=== PATIENT | female | born 1950 | race Caucasian/White ===

== ENCOUNTER 2024-01-01 09:20 | Emergency (ER) | payer MEDICARE, OTHER, SELFPAY ==
[2024-01-01 09:24] VITALS: BP 158/77
[2024-01-01 09:34] VITALS: BMI 27.3
[2024-01-01 10:18] VITALS: BP 158/66
--- NOTE | 2024-01-01 10:42 | ED.GENMED ---
History of Present Illness
General
Chief Complaint: Fall
Source: patient and spouse
Exam Limitations: none
Time Seen by Provider: 01/01/24 09:31
Travel History
Have you had any contact with someone who has COVID-19?: No
Do you have any symptoms of coronavirus? Fever > 100 degrees, chills, cough, shortness of breath, sore throat, loss of taste or smell, muscle aches, or headache?: No
History of Present Illness
History of Present Illness:
73-year-old female who presents after fall on . Landed on her buttocks. She states she went straight down. She reports pain throughout the lower lumbar and sacral region. No numbness or tingling. No loss of bladder or bowel function, no
motor weakness. She states that the pain is not that bad. She was able to sleep because the pain is not that bad when she lays. She has been using ibuprofen which seems to help.
Past History
Past History
ED Past Medical History: HTN and Hypothyroidism
ED Past Surgical History:
Phy Exam
Physical Exam
Physical Exam:
CONSTITUTIONAL Vital signs reviewed, Patient alert and oriented to person, place and time. Well-appearing
HEAD atraumatic, normocephalic.
EYES eyelids normal to inspection, Extraocular muscles intact, Conjunctiva normal, Sclera normal.
NECK normal range of motion, Trachea midline, no jugular venous distention.
RESP no respiratory distress
BACK No obvious deformities, no true midline tenderness, no sacral tenderness
UPPER EXTREMITY Gross Range of motion normal, gross motor strength normal
LOWER EXTREMITY Gross range of motion normal, Gross motor strength normal
NEURO Speech normal, No focal motor deficits include, Sarah coma scale 15, Memory normal, Cranial Nerves intact to screening exam.
SKIN Skin warm, dry, and normal in color.
PSYCHIATRIC Patient oriented to person place and time, Normal affect.
Course
Orders/Labs/Results
Orders:
Orders
01/01/24 09:31
Pelvis, 1 or 2 Views CR [CR Pelvis - 1 Or 2 Views ] Urgent
Comment:
Reason For Exam: fall
01/01/24 09:55
Lumbar Spine, 2 or 3 View [CR Lumbar Spine 2 Or 3 Views] Urgent
Comment:
Reason For Exam: fall
Vital Signs
Initial and Last Documented VS:
Initial Vital Signs
Temp Pulse Resp BP Pulse Ox
98.3 F 87 18 158/77 98
01/01/24 09:24 01/01/24 09:24 01/01/24 09:24 01/01/24 09:24 01/01/24 09:24
Last Documented Vital Signs
Temp Pulse Resp BP Pulse Ox
98.3 F 87 18 158/66 96
01/01/24 09:24 01/01/24 09:24 01/01/24 09:24 01/01/24 10:18 01/01/24 10:19
MDM/Problems Addressed
MDM/Problems Addressed:
Lumbar compression fracture
*Radiology
Radiology exam reviewed: preliminary read by ED provider (L4 compression fracture noted)
*Pulse Oximetry
Patient hypoxic: no
*Critical Care Note
Total Time (30-74mins, 75-104mins- exclusive of procedures): Not Applicable
Data Reviewed
Source: patient and significant other
Prescriptions/Medications Considered But Not Given:
Consider narcotic pain medication but patient reports it makes her nauseous.
Patient Management
Escalation/DeEscalation of care consider admission/obs:
Lumbar compression fracture. Outpatient PCP and spine follow-up.
ED Attending Note
-
Portions of this chart may have been created with voice recognition software.� Occasional wrong word or��sound alike� substitutions may have occurred due to the inherent limitations of voice recognition software.
Discharge Plan
Departure
Patient Disposition: Home (Routine Discharge)
Date of Disposition: 01/01/24
Time of Disposition: 10:44
Patient with high blood pressure during this ER visit?: Yes
Discharge Problem:
Compression fracture of lumbar vertebra
Instructions: Vertebral compression fracture, BLOOD PRESSURE
Prescriptions:
No Action
lisinopril 20 mg Tablet
20 mg PO DAILY
levothyroxine 100 mcg Tablet
100 mcg PO DAILY
biotin 10,000 mcg Capsule
5,000 mcg PO DAILY
fluocinonide 0.05 % Cream
1 applic TOPICAL BID
finasteride 5 mg Tablet
2.5 mg PO DAILY
Bufferin 81 mg Tablet
1 tab PO DAILY
Referrals:
Jacob Madsen MD [Family Provider] -
Alberto Reyes MD [Active] -
Activity Restrictions/Additional Instructions:
Please rest as discussed. Pain will be worse when you are upright. Please see your doctor and/or differential specialist in the next 1 week for follow-up and reevaluation. A brace may be helpful if your pain persist. Return immediately for numbness,
tingling, loss of bladder function, loss of bowel, weakness in the legs or any other concerns
Interventions
Interventions:
*Risk Screen - Suicide Last Done: 01/01/24 09:34
*General Assessment Last Done: 01/01/24 09:34
*Neglect/Abuse Screening Last Done: 01/01/24 09:34
ED- Fall Risk Assessment Last Done: 01/01/24 09:34
*ED COVID-19 Vaccine History Last Done: 01/01/24 09:27
ED-Musculoskeletal Assessment Last Done: 01/01/24 09:34
ED- Neurological Assessment Last Done: 01/01/24 09:34
ED-Skin Assessment Last Done: 01/01/24 09:34
== END 2024-01-01 10:54 | disposition home or self-care (01) ==
LOC: EMR 09:20
PROVIDERS: EMERGENCY PHYSICIAN Emergency Medicine; FAMILY PHYSICIAN Family Medicine
DX: M48.56XA Collapsed vertebra, not elsewhere classified, lumbar region, initial encounter for fracture (principal); M51.36 Other intervertebral disc degeneration, lumbar region; W19.XXXA Unspecified fall, initial encounter; I10 Essential (primary) hypertension
CPT/HCPCS: 99283; 72100; 72170

== ENCOUNTER 2024-01-15 23:52 | Emergency (ER) | payer MEDICARE, OTHER, SELFPAY ==
[2024-01-15 23:55] VITALS: BP 159/96
[2024-01-16 03:22] VITALS: BP 163/85
[2024-01-16 03:23] VITALS: BMI 35.6
[2024-01-16] MEDS: ZOFRAN ODT (ORALLY DISINTEGRATING) 4 MG PO (05:43)
[2024-01-16] MEDS: TYLENOL 1000 MG PO (05:43)
[2024-01-16] MEDS: TORADOL 30 MG IM (05:44)
[2024-01-16] MEDS: ROXICODONE 5 MG PO (05:44)
[2024-01-16] MEDS: LIDOCAINE 4% PATCH 1 PATCH TOPICAL (05:45)
[2024-01-16 06:00] VITALS: BP 154/68
--- NOTE | 2024-01-16 07:54 | ED.GENMED ---
History of Present Illness
General
Chief Complaint: Back Pain
Source: patient and spouse
Exam Limitations: none
Time Seen by Provider: 01/16/24 03:47
Nursing documentation reviewed up to this point in time: agreed with
Travel History
Have you had any contact with someone who has COVID-19?: No
Do you have any symptoms of coronavirus? Fever > 100 degrees, chills, cough, shortness of breath, sore throat, loss of taste or smell, muscle aches, or headache?: No
History of Present Illness
History of Present Illness:
73-year-old female with history as documented presents for back pain. Patient had a fall onto her bottom 2 weeks ago and was seen in the emergency room 01/01/2024. Was found to have an acute L4 compression fracture. She was discharged home. Since
returning home she has had significant back pain related to this compression fracture. She has been taking Tylenol and Motrin but is having difficulty controlling her symptoms. She is post to follow-up with orthopedics this upcoming and
was trying to get through to her appointment but last night she cannot even sleep because of poorly controlled pain and so she came to the emergency room for assessment. No weakness or numbness in her legs. No saddle anesthesia. No bowel or
bladder incontinence issues. No fever. No new falls or injuries.
Past History
Past History
ED Past Medical History: HTN and Hypothyroidism
ED Past Surgical History:
Review of Systems
Review of Systems
All Other Systems: ROS reviewed and negative except as documented in HPI and ROS
Constitutional: Denies fever
Respiratory: Denies trouble breathing
Cardiac: Denies chest pain
ABD/GI: Denies abdominal pain or vomiting
: Denies flank pain or incontinence
Musculoskeletal: Reports back pain; Denies neck pain
Neurological: Denies headache, weakness or numbness
Phy Exam
Physical Exam
Physical Exam:
General: Awake, alert, oriented x3; appears uncomfortable sitting up in bed
Head: Normocephalic, atraumatic
Eyes: Conjunctiva normal
Throat: Airway intact, handling secretions
Neck: Trachea midline, supple without meningismus
Lungs: Breathing comfortably no distress
Heart: Regular rate
Back: Midline tenderness L4-L5 region
Neuro: Cranial nerves grossly intact, speech fluid; motor and sensory function intact lower extremities, ambulatory
Skin: no rash
Extremities: Warm and well-perfused
Scores
Heart Failure Risk
Heart Failure Risk Score: Not Applicable
Heart Score for Chest Pain Patients
STEMI patient?: Not applicable
Withdrawal Assessment of Alcohol
Withdrawal Assessment Completed?: Not applicable
Course
Orders/Labs/Results
Orders:
Orders
01/16/24 05:35
Acetaminophen [Tylenol] 1,000 mg PO NOW STA
Ketorolac [Toradol] 30 mg IM NOW STA
Lidocaine [Lidocaine 4% Patch] 1 patch TOPICAL ONCE ONE
Ondansetron Orally Disint [Zofran Odt (Orally Disintegrating)] 4 mg PO NOW STA
Oxycodone [Roxicodone] 5 mg PO NOW STA
Vital Signs
Initial and Last Documented VS:
Initial Vital Signs
Temp Pulse Resp BP Pulse Ox
36.7 C 87 16 159/96 99
01/15/24 23:55 01/15/24 23:55 01/15/24 23:55 01/15/24 23:55 01/15/24 23:55
Last Documented Vital Signs
Temp Pulse Resp BP Pulse Ox
36.7 C 70 16 154/68 95
01/15/24 23:55 01/16/24 06:00 01/16/24 06:00 01/16/24 06:00 01/16/24 06:00
MDM/Problems Addressed
Differential Diagnosis Includes:
Low back pain from compression fracture
MDM/Problems Addressed:
73-year-old female with recent fall and compression fracture at L4 presents with poorly controlled low back pain related to compression fracture. Taking Motrin and Tylenol without adequate control. Could not sleep tonight due to pain. No red flag
symptoms. Hypertensive otherwise normal vitals. Plan to treat with Toradol, Tylenol, Lidoderm, oxycodone. Patient gets nauseated with opiates will treat with some Zofran. Reassess after the above.
Reassessment after medications patient is feeling much better. She is up and walking around still has some pain but much better controlled. She has orthopedic follow-up scheduled in the next few days. Will plan to prescribe multimodal pain
control regimen, advised for her to continue [id number] Tylenol and Motrin as well. She feels comfortable with this plan. Spoke about return precautions all questions answered.
Acute Exacerbation and/or Progression of Chronic Illness:
Acutely hypertensive
Acute Exacerbation and/or Progression of Chronic Illness: HTN
*Pulse Oximetry
Patient hypoxic: no
*Critical Care Note
Total Time (30-74mins, 75-104mins- exclusive of procedures): Not Applicable
Data Reviewed
Source: patient, records and spouse
ED Attending Note
-
Portions of this chart may have been created with voice recognition software.� Occasional wrong word or��sound alike� substitutions may have occurred due to the inherent limitations of voice recognition software.
Discharge Plan
Departure
Patient Disposition: Home (Routine Discharge)
Date of Disposition: 01/16/24
Time of Disposition: 06:41
Patient with high blood pressure during this ER visit?: Yes
Discharge Problem:
Compression fx, lumbar spine, Low back pain, Hypertension
Instructions: Low Back Pain (DC), Vertebral Compression Fracture ED, BLOOD PRESSURE
Prescriptions:
New
oxycodone 5 mg tablet
5 mg PO TID PRN (Reason: Pain) Qty: 20 0RF
ondansetron 4 mg tablet,disintegrating
4 mg PO TIDPRN PRN (Reason: nausea/vomiting) Qty: 20 0RF
lidocaine [Lidocan III] 5 % adhesive patch,medicated
1 patch topical DAILY Qty: 15 0RF
No Action
lisinopril 20 mg Tablet
20 mg PO DAILY
levothyroxine 100 mcg Tablet
100 mcg PO DAILY
biotin 10,000 mcg Capsule
5,000 mcg PO DAILY
fluocinonide 0.05 % Cream
1 applic TOPICAL BID
finasteride 5 mg Tablet
2.5 mg PO DAILY
Bufferin 81 mg Tablet
1 tab PO DAILY
Referrals:
Jacob Madsen MD [Family Provider] - Call in 1-3 days for appt
Activity Restrictions/Additional Instructions:
Thank you for visiting the Emergency Department at [facility].
1. Please schedule a follow up appointment as directed. Call first thing tomorrow morning to make an appointment.
2. If indicated, please take your medications as instructed and indicated on discharge paperwork.
3. If any of your symptoms do not improve, or persist, or become more severe within 6-12 hours, please return to the emergency department for further care.
4. Please return to the emergency department if you develop a headache, neck pain/stiffness, fever greater than 100.4F, chest pain, shortness of breath, persistent nausea, vomiting, slurred speech, difficulty walking, numbness/tingling, weakness,
signs of infection or any other symptoms that are worrisome to you.
Please call [phone] if you have any questions.
Interventions
Interventions:
*Risk Screen - Suicide Last Done: 01/15/24 23:55
*General Assessment Last Done: 01/15/24 23:55
*Neglect/Abuse Screening Last Done: 01/15/24 23:55
ED- Fall Risk Assessment Last Done: 01/16/24 06:55
*ED COVID-19 Vaccine History Last Done: 01/15/24 23:55
*Nursing Disposition Last Done: 01/16/24 06:55
ED-Musculoskeletal Assessment Last Done: 01/16/24 03:23
Discharge Date and Time
Discharge Date/Time: 01/16/24 06:58
Print Language: MONGOLIAN
== END 2024-01-16 06:58 | disposition home or self-care (01) ==
LOC: EMR 23:52
PROVIDERS: EMERGENCY PHYSICIAN Emergency Medicine; FAMILY PHYSICIAN Family Medicine
DX: M48.56XA Collapsed vertebra, not elsewhere classified, lumbar region, initial encounter for fracture (principal); M54.50 Low back pain, unspecified; I10 Essential (primary) hypertension; E03.9 Hypothyroidism, unspecified
CPT/HCPCS: 99282; 96372

== ENCOUNTER → 2024-02-10 12:28 | Outpatient (REF) | payer MEDICARE, OTHER, SELFPAY | LOC: RAD 12:28 | PROVIDERS: ATTENDING PHYSICIAN Physician Assistant; FAMILY PHYSICIAN Family Medicine | DX: S32.040S Wedge compression fracture of fourth lumbar vertebra, sequela (principal) | CPT/HCPCS: 72131 ==

== ENCOUNTER → 2024-03-03 10:43 | Outpatient (REF) | payer MEDICARE, OTHER, SELFPAY | LOC: RAD 10:43 | PROVIDERS: ATTENDING PHYSICIAN Physician Assistant; FAMILY PHYSICIAN Family Medicine | DX: S32.040A Wedge compression fracture of fourth lumbar vertebra, initial encounter for closed fracture (principal) | CPT/HCPCS: 77080 ==

== ENCOUNTER → 2024-03-07 07:54 | Outpatient (REF) | payer MEDICARE, OTHER, SELFPAY ==
[2024-03-07] VITALS (17 sets, daily range): BP systolic 75–209; BP diastolic 72–91
[2024-03-07 08:39] LABS: % Basophils 1.3 % (0-2); % Eosinophils 1.3 % (0-6); % Immature Granulocytes 0.3 % (0-0.5); % Lymphocytes 18.3 % (20.5-51.1); % Monocytes 10.4 % (1.7-9.3); % Neutrophils 68.4 % (42.2-75.2); Absolute Basophils 0.1 10^3/uL (0-0.2); Absolute Eosinophils 0.1 10^3/uL (0-0.7); Absolute Lymphocytes 0.7 10^3/uL (1.2-3.4); Absolute Monocytes 0.4 10^3/uL (0.1-0.6); Absolute Neutrophils 2.7 10^3/uL (1.4-6.5); Hematocrit 36.2 % (37.0-47.0); Hemoglobin 12.2 g/dL (12.0-16.0); Mean Corp Hgb Conc. 33.7 g/dL (33.0-37.0); Mean Corpuscular Volume 92.1 fL (81.0-99.0); Nucleated Red Blood Cells % 0 %; Platelet Count 229 10^3/uL (130-400); Red Blood Cell Count 3.93 10^6/uL (4.20-5.40); Red Cell Dist. Width 13.7 % (11.5-14.5); White Blood Cell Count 3.9 10^3/uL (4.8-10.8)
[2024-03-07 08:46] LABS: INR 0.95; PT 12.4 Sec (11.4-14.6)
[2024-03-07] MEDS: VANCOCIN 200 IV (09:01)
--- NOTE | 2024-03-08 08:45 | W.PN.UPDATE ---
Update Note
Progress Note Update
Phone call:
73 yo female who underwent L4 kyphoplasty yesterday. She reports the back pain is improved. She is still having some hip pain. She was advised the hip pain may or may not improve. She was able to sleep last night with only mionial back pain.
She was advised she can start PT in the next couple of days if she wishes. She can continue using the lidocaine cream and voltaren cream on her hip as needed.
== END ==
LOC: RADI 07:54
PROVIDERS: ATTENDING PHYSICIAN Radiology Diagnostic Radiology; FAMILY PHYSICIAN Family Medicine; REFERRING PHYSICIAN Physician Assistant
DX: M48.56XA Collapsed vertebra, not elsewhere classified, lumbar region, initial encounter for fracture (principal); M51.16 Intervertebral disc disorders with radiculopathy, lumbar region
CPT/HCPCS: 22514; 36415; 85025; 85610

== ENCOUNTER → 2024-04-19 11:06 | Outpatient (REF) | payer MEDICARE, OTHER, SELFPAY | LOC: RAD 11:06 | PROVIDERS: ATTENDING PHYSICIAN Physician Assistant; FAMILY PHYSICIAN Family Medicine | DX: M79.18 Myalgia, other site (principal); Z91.81 History of falling | CPT/HCPCS: 72190 ==

== ENCOUNTER → 2024-06-12 10:32 | Outpatient (REF) | payer MEDICARE, OTHER, SELFPAY | LOC: RAD 10:32 | PROVIDERS: ATTENDING PHYSICIAN Physician Assistant; FAMILY PHYSICIAN Family Medicine | DX: M79.18 Myalgia, other site (principal); Z91.81 History of falling | CPT/HCPCS: 72192 ==